=== PATIENT | female | born 1955 | race Caucasian/White ===

== ENCOUNTER 2023-12-18 10:41 | Inpatient (IN) | payer MEDICARE, OTHER ==
[2023-12-18] VITALS (247 sets, daily range): BP systolic 101–179; BP diastolic 13–84; PULSE 31–60; TEMP 98–98.2; O2SAT 83–100
[~2023-12-18] VITALS: Ht 170.2 cm; Wt 103.5 kg
--- NOTE | 2023-12-18 10:39 | NUR ---
Arrived to the unit via EMS. Alert and oriented upon arrival. Denies any sypmtoms related to bradycardia at this time. Currenlty on dopamin drip. Hospitalist and cardiology notified of arrival.
[2023-12-18] MEDS ORDERED: CELEXA40 MG PO (11:28)
[2023-12-18] MEDS ORDERED: VOLTAREN GEL 1%1 TU TP (11:29)
[2023-12-18] MEDS ORDERED: PRINIVIL20 MG PO (11:31)
[2023-12-18] MEDS ORDERED: COREG12.5 MG PO (11:31)
[2023-12-18] MEDS ORDERED: REQUIP0.25 MG PO (11:34)
[2023-12-18] MEDS ORDERED: NORCO 325 MG-101 TAB PO (11:35)
[2023-12-18] MEDS ORDERED: LIPITOR 40MG TA40 MG PO (11:38)
[2023-12-18] MEDS ORDERED: ASPIRIN E.C. 8181 MG PO (11:39)
[2023-12-18] MEDS ORDERED: Vancomycin 1.5 GM,Special Dose/Pharmacy Prepared 1.5 GM in NS 250 ML IV SCH (11:45)
[2023-12-18] MEDS ORDERED: 1/2 NS 1,000 ML IV SCH (11:45)
[2023-12-18] MEDS ORDERED: NS 1,000 ML IV SCH (12:00)
[2023-12-18] MEDS ORDERED: DOPamine/Dextrose 5%-Water 250 ML IV SCH (12:00)
[2023-12-18] MEDS ORDERED: Acetaminophen 325 MG TAB PO PRN (12:30)
[2023-12-18] MEDS ORDERED: Ondansetron 4 MG/2 ML VIAL IV PRN (12:30)
--- NOTE | 2023-12-18 13:18 | NUR ---
Please see merge documentation for record of interventions, vitals and medications administered during implantation of pacemaker
[2023-12-18] MEDS ORDERED: Midazolam 2 MG/2 ML VIAL IV SCH (13:51)
[2023-12-18] MEDS ORDERED: fentaNYL 50 MCG/ML 2 ML VIAL IV SCH (13:52)
[2023-12-18] MEDS ORDERED: Vancomycin 1 GM VIAL IR SCH (14:05)
[2023-12-18] MEDS ORDERED: Topical Skin Adhesive 1 EACH (1 ML) TOP ONE (14:10)
[2023-12-18] MEDS ORDERED: NS 1,000 ML IV.SOLN. IR SCH (14:11)
--- NOTE | 2023-12-18 14:30 | NUR ---
Debbie was transferred back to ICU rm 4 after PPM placement. She is awake and alert, pwd with reg and unlabored respirations. Dressing to pacer site is cdi, no evidence of bleeding or hematoma noted. pt hooked up to monitors, vitals wnl. bedside report and handoff to Roxana MORAN.
[2023-12-18 15:01] LABS: INR 1.2 (0.8-3.0); PROTHROMBIN TIME 13.2 SECONDS (9.7-12.8)
[2023-12-18] MEDS ORDERED: hydrALAZINE 20 MG/ML 1 ML VIAL IV PRN (16:30)
--- NOTE | 2023-12-18 19:40 | NUR ---
PATIENT LAYING IN BED, ALERT AND CALM. IV WITH NS RUNNING. NO ACUTE EVENTS.
[2023-12-18] MEDS ORDERED: rOPINIRole 0.5 MG TAB PO SCH (21:00)
[2023-12-19] VITALS (271 sets, daily range): BP systolic 111–174; BP diastolic 64–101; PULSE 60–94; TEMP 97.8–98.4; O2SAT 87–100
[2023-12-19 06:26] LABS: BASO % 0.3 % (0.0-2.0); EOS # 0.1 K/mm3 (0.0-0.7); EOS % 1.2 % (0.0-4.0); GRAN # 3.3 K/mm3 (1.4-6.5); GRAN % 54.5 % (42.2-75.2); HEMOGLOBIN 10.3 g/dl (12.5-16.0); LYMPH # 2.4 K/mm3 (1.2-3.4); LYMPH % 39.3 % (20.0-51.0); MEAN CELL VOLUME 93 fl (80.0-100.0); MEAN CORPUSCULAR HEMOGLOBIN 30 pg (27-31); MEAN CORPUSCULAR HGB CONC 32 g/dl (33.0-37.0); MEAN PLATELET VOLUME 9.9 fl (7.4-10.4); MONO # 0.3 K/mm3 (0.1-0.6); MONO % 4.5 % (1.7-9.3); PLATELET COUNT 157 K/mm3 (130-400); RED BLOOD COUNT 3.41 M/mm3 (4.10-5.30); REDCELL DISTRIBUTION WIDTH-CV 14.7 % (11.5-14.5)
[2023-12-19 06:29] LABS: HEMATOCRIT 31.8 % (37.0-47.0)
[2023-12-19 06:38] LABS: ALBUMIN 3.4 g/dL (3.4-4.8); BILIRUBIN,TOTAL 1.4 mg/dL (0.2-1.2); CREATININE, serum 0.83 mg/dL (0.57-1.11); POTASSIUM 4.6 mEq/L (3.5-4.5); TOTAL PROTEIN 6.7 g/dl (6.2-8.1)
--- NOTE | 2023-12-19 07:00 | NUR ---
Report received from DEAN Leigh; patient currently resting in bed watching TV. Patient has NS running through her peripheral line; no other lines or tubes are in place at this time. Patient's vital signs are within normal limits this morning.
[2023-12-19] MEDS ORDERED: Atorvastatin 40 MG TAB PO SCH (09:00)
[2023-12-19] MEDS ORDERED: Citalopram 20 MG TAB PO SCH (09:00)
[2023-12-19] MEDS ORDERED: 1/2 NS 1,000 ML IV SCH (09:15)
[2023-12-19] MEDS ORDERED: Lisinopril 20 MG TAB PO SCH (10:06)
--- NOTE | 2023-12-19 11:09 | NUR ---
Initial visit; Patient thanked [facility] for coming in, visiting and offering God's blessings for healing. Patient had heart issues and was transported to our hospital and received a Pacemaker. Patient is very pleased with her Dr. and our hospital's staff. Discharge Coordinator wished Debbie well.
--- NOTE | 2023-12-19 13:00 | NUR ---
Reported off to DEAN Fontenot; patient going upstairs directly from geophysical laboratory chief after procedure. Patient's belongings were taken upstair to room 315 by DEAN Branch. Patient's vital signs within normal limits and patient in stable condition.
--- NOTE | 2023-12-19 13:25 | NUR ---
Social work attempted to meet with patient to complete discharge planning. Patient is unavailable x2. Will follow up when available.
[2023-12-19] MEDS ORDERED: Topical Skin Adhesive 1 EACH (1 ML) TOP ONE (13:46)
[2023-12-19] MEDS ORDERED: Vancomycin 1 GM VIAL IR SCH (13:49)
--- NOTE | 2023-12-19 13:57 | NUR ---
Refer to [facility] [employer] report for procedural sedation/notes
[2023-12-19] MEDS ORDERED: Midazolam 2 MG/2 ML VIAL IV SCH (14:13)
[2023-12-19] MEDS ORDERED: fentaNYL 50 MCG/ML 2 ML VIAL IV SCH (14:14)
--- NOTE | 2023-12-19 14:30 | NUR ---
During PPM lead revision/reposition MD Cathy notified of pt having some sedation confusion/disorientation - no orders received other than to continue to monitor. Pt was asked to keep arms down by herside, she responded by stating "im trying to keep my hands out of the beach sand". Reorientation provided. Per DEAN Morrison, pt had similar disorientation during the initial PPM insertion yesterday.
--- NOTE | 2023-12-19 14:50 | NUR ---
PT ARRIVED FROM SENIOR VICE PRESIDENT & GENERAL COUNSEL. PT ANSWERS ORIENTATION QUESTIONS APPROPRIATLY, BUT MAKING WEIRD COMMENTS, WAS INFORMED BY SENIOR VICE PRESIDENT & GENERAL COUNSEL RN THAT PT HAS SOME POST SEDATION DELERIUM. PTS VSS. PT ORIENTED TO ROOM AND CALL LIGHT. BED ALARM ACTIVE.
--- NOTE | 2023-12-19 14:50 | NUR ---
Pt to room 315 - bedside handoff performed with DEAN La. Vitals initiated and stable. Incision site assessed and stable. HOB>45degrees. Pt AOx4 with no disorientation/confusion - pt also denying that she was talking about beach sand during the case. Education provided on IV sedation administration amnesia/disorientation. Call light in reach. Arm sling in place - pt educated if existing sling becomes soiled pt needs to encourage staff to get a replacement sling.
[2023-12-19] MEDS ORDERED: Clindamycin 150 MG CAP PO SCH (18:00)
--- NOTE | 2023-12-19 22:40 | NUR ---
Shift assessment complete. Patient is asleep upon entering room. Denies any pain at this time. She is currently stable on room air. Call light is within reach, bed is locked and in low position.
[2023-12-20 03:48] VITALS: BP 168/66; PULSE 69; TEMP 98.1
[2023-12-20 04:49] VITALS: BP 157/74
[2023-12-20 06:30] LABS: BASO % 0.2 % (0.0-2.0); EOS # 0.1 K/mm3 (0.0-0.7); EOS % 0.9 % (0.0-4.0); GRAN # 3.2 K/mm3 (1.4-6.5); GRAN % 53.6 % (42.2-75.2); HEMOGLOBIN 10.2 g/dl (12.5-16.0); LYMPH # 2.3 K/mm3 (1.2-3.4); LYMPH % 38.5 % (20.0-51.0); MEAN CELL VOLUME 93 fl (80.0-100.0); MEAN CORPUSCULAR HEMOGLOBIN 31 pg (27-31); MEAN CORPUSCULAR HGB CONC 33 g/dl (33.0-37.0); MEAN PLATELET VOLUME 9.5 fl (7.4-10.4); MONO # 0.4 K/mm3 (0.1-0.6); MONO % 6.5 % (1.7-9.3); PLATELET COUNT 148 K/mm3 (130-400); RED BLOOD COUNT 3.32 M/mm3 (4.10-5.30); REDCELL DISTRIBUTION WIDTH-CV 14.7 % (11.5-14.5)
--- NOTE | 2023-12-20 06:46 | NUR ---
Skip from [employer] called to inform us that all current findings on pacemaker interegation are within expected range.
[2023-12-20 06:50] LABS: ALBUMIN 3.4 g/dL (3.4-4.8); BILIRUBIN,TOTAL 1.5 mg/dL (0.2-1.2); CREATININE, serum 0.78 mg/dL (0.57-1.11); POTASSIUM 4.1 mEq/L (3.5-4.5); TOTAL PROTEIN 6.5 g/dl (6.2-8.1)
[2023-12-20 07:15] VITALS: BP 155/75; PULSE 71; TEMP 97.9
--- NOTE | 2023-12-20 08:00 | NUR ---
Patient laying in bed, A&Ox4. VSS. IV CDI. Incision lf chest CDI, arm in sling. Denies pain and discomfort. Call light within reach
--- NOTE | 2023-12-20 09:36 | NUR ---
foot worker met with patient to discuss discharge planning. Patient lives in [place] with her , Aaron, P# [phone]. PCP is Jeffrey, pharmacy is [facility]. No issues affording medications. Second point of contact is Aki (son) P# [phone]. Insurance is Medicare A and B and [employer] insurance as well as [employer] for pharmacy needs. No DPOA-HC and not interested in completing one at this time. Patient reports she has a walker and cane at home but does not use them. Patient reports she is normally independent with ADLS and can transport herself to and from appointments. Patient would like to return home at time of discharge. Discharge plan: Home
[2023-12-20] MEDS ORDERED: Carvedilol 6.25 MG TAB PO SCH (10:42)
[2023-12-20 11:10] VITALS: BP 127/77; PULSE 61; TEMP 97.5
[2023-12-20] MEDS ORDERED: CLEOCIN HCL300 MG PO (13:43)
--- NOTE | 2023-12-20 14:16 | NUR ---
Discharge paperwork reviewed with the patient. Patient verbalized an understanding to follow doctors orders. IV removed, tip intact, gauze and coban applied. Patient waiting on ride home. Call light within reach
--- NOTE | 2023-12-20 14:45 | NUR ---
Patient taken down by wheelchair to awaiting vehicle.
== END 2023-12-20 14:45 | disposition home or self-care (01) | DRG 243 ==
LOC: ICU 10:41 → MEDICAL 12-19 13:59
PROVIDERS: Nurse Practitioner Family; ADMIT Internal Medicine
PROC: 0JH606Z Insertion of Pacemaker, Dual Chamber into Chest Subcutaneous Tissue and Fascia, Open Approach (ICD-10-PCS; principal; 2023-12-18)
PROC: 02H63JZ Insertion of Pacemaker Lead into Right Atrium, Percutaneous Approach (ICD-10-PCS; 2023-12-18)
PROC: 02HK3JZ Insertion of Pacemaker Lead into Right Ventricle, Percutaneous Approach (ICD-10-PCS; 2023-12-18)
PROC: 02WA0MZ Revision of Cardiac Lead in Heart, Open Approach (ICD-10-PCS; 2023-12-19)
DX: I44.2 Atrioventricular block, complete (principal); N17.9 Acute kidney failure, unspecified; I10 Essential (primary) hypertension; E78.5 Hyperlipidemia, unspecified; F32.A Depression, unspecified; I49.5 Sick sinus syndrome; G25.81 Restless legs syndrome; I25.10 Atherosclerotic heart disease of native coronary artery without angina pectoris; E87.5 Hyperkalemia; I34.0 Nonrheumatic mitral (valve) insufficiency; R74.01 Elevation of levels of liver transaminase levels; Z96.651 Presence of right artificial knee joint; Z86.73 Personal history of transient ischemic attack (TIA), and cerebral infarction without residual deficits; Z79.82 Long term (current) use of aspirin; Z79.899 Other long term (current) drug therapy; Z88.0 Allergy status to penicillin; Z88.8 Allergy status to other drugs, medicaments and biological substances; Z98.51 Tubal ligation status; Z90.49 Acquired absence of other specified parts of digestive tract; Z87.891 Personal history of nicotine dependence
CPT/HCPCS: C1769; C1785; C1894; C1898; J0360; J0665-JZ; J0737; J2250; J3010; J3370; J7030; J7050